=== PATIENT | male | born 1970 | race Caucasian/White ===

== ENCOUNTER 2020-09-02 11:50 | Emergency (ER) | payer OTHER ==
[2020-09-02] MEDS ORDERED: EPINEPHrine SYRINGE 1 MG/10 ML SYRINGE ONE (12:00)
--- NOTE | 2020-09-02 12:06 | PHYS DOC ---
Past Medical History Past Medical History: Hypertension General Adult EDM: Chief Complaint: CARDIAC ARREST HPI: HPI: Patient is a 49 year old male who was brought here by EMS from his workplace due to cardiac arrest. Per coworker, patient was found unresponsive sitting in chair at work. He was found normal 5 minutes prior. NO PULSE, NO SPONTANEOUS RESPIRATION. EMS was called, they initiated CPR, NOT SURE if CPR was done by coworkers. Patient was intubated with LMA. He was found to be in VF. They shocked him a total of 5 times, given a total of 5 rounds of EPINEPHRINE, 150 MG LIDOCAINE VIA IO by EMS. His blood sugar was 88. Patient was brought here CPR in progress, in Asystole. Patient was already resuscitated by EMS for 50 minutes already AND NO ROSC. This physician saw this patient at the time of arrival. Patient's said patient has been doing ok this morning when he left for work. He has history of HTN and on medication for it. He has been on KETO DIET TO LOSE WEIGHT. HE lost about 120 lbs in a year already. Review of Systems: Review of Systems: not able to obtain due to condition Heart Score: Risk Factors: Risk Factors: DM, Current or recent (<one month) smoker, HTN, HLP, family history of CAD, obesity. Risk Scores: Score 0 - 3: 2.5% MACE over next 6 weeks - Discharge Home Score 4 - 6: 20.3% MACE over next 6 weeks - Admit for Clinical Observation Score 7 - 10: 72.7% MACE over next 6 weeks - Early Invasive Strategies Physical Exam: PE: Constitutional: morbidly obese, cyanosis, comatose. HENT: ATRAUMATIC. ] Eyes: FIXED, DILATED. NONEREACTIVE Neck: ATRAUMATIC. Cardiovascular:NO PULSE, ASYSTOLE. Lungs & Thorax: intubated via LMA. Abdomen: distented. Skin: cyanosis, cold to touch Back: atraumic. Extremities: atraumatic Neurologic: unresponsive. Psychologic: unresponsive EKG: EKG: [] Radiology/Procedures: Radiology/Procedures: [] Course & Med Decision Making: Course & Med Decision Making Pertinent Labs and Imaging studies reviewed. (See chart for details) Patient is a 49-year-old male who was found unresponsive at work, he was in V. fib arrest, he was shocked multiple times, resuscitated by EMS for 50 minutes, NO ROSC. He was resuscitated for 10 more minutes in the ER, NO ROSC. He was pronounced by this physician at 1200, cause of most likely massive heart attack. Rafat Disclaimer: Rafat Disclaimer: This electronic medical record was generated, in whole or in part, using a voice recognition dictation system. Departure Departure Impression: Primary Impression: Cardiac arrest Disposition: 20 HEAVENLY CRUZ DO Sep 02, 2020 12:06
== END 2020-09-02 12:00 ==
LOC: ER 11:50 → EDBD 11:53 → ER 12:00
DX: I46.9 Cardiac arrest, cause unspecified (principal); I10 Essential (primary) hypertension; E66.01 Morbid (severe) obesity due to excess calories
CPT/HCPCS: 31500; 92950; 99285; J0171